=== PATIENT | female | born 1955 | race Caucasian/White ===

== ENCOUNTER 2019-08-29 00:02 | Emergency (ER) | payer OTHER ==
[~2019-08-29] VITALS: Ht 160 cm; Wt 72.7 kg
[2019-08-29 00:08] VITALS: Ht 160 cm; Wt 72.7 kg
[2019-08-29 02:04] VITALS: BP 138/69
== END 2019-08-29 02:04 | disposition home or self-care (01) ==
LOC: ED 00:02
DX: J45.909 Unspecified asthma, uncomplicated (principal); J11.1 Influenza due to unidentified influenza virus with other respiratory manifestations; I10 Essential (primary) hypertension
CPT/HCPCS: 87804; J7512; J7620